=== PATIENT | female | born 1935 ===

== ENCOUNTER 2020-03-31 17:51 | Outpatient (CLI) | payer MEDICARE | END 2020-03-31 17:52 | disposition home or self-care (01) | LOC: LAB 17:51 | PROVIDERS: ATTEND Family Medicine | DX: I82.419 Acute embolism and thrombosis of unspecified femoral vein (principal); U07.1 COVID-19; I63.9 Cerebral infarction, unspecified; I10 Essential (primary) hypertension; Z85.3 Personal history of malignant neoplasm of breast | CPT/HCPCS: 36415; 85379 ==